=== PATIENT | female | born 1990 | race African-American/Black ===

== ENCOUNTER 2020-05-24 12:47 | Emergency (ER) | payer OTHER ==
[~2020-05-24] VITALS: Ht 172.7 cm; Wt 86.0 kg
[2020-05-24] MEDS ORDERED: LEVETIRACETAM 500MG PREMIX 100 ML IV ONE (13:30)
[2020-05-24] MEDS ORDERED: IBUPROFEN 800MG TABLET PO ONE (16:15)
[2020-05-24 16:19] VITALS: BP 124/72
== END 2020-05-24 16:52 | disposition home or self-care (01) ==
LOC: ER 12:47
DX: R56.9 Unspecified convulsions (principal)
CPT/HCPCS: 81025; 96365; 96366; 99284; J1953

== ENCOUNTER 2020-06-28 10:26 | Emergency (ER) | payer OTHER ==
[~2020-06-28] VITALS: Ht 177.8 cm; Wt 80.0 kg
[2020-06-28] MEDS ORDERED: SODIUM CHLORIDE 0.9% 1,000 ML IV ONE (10:30)
[2020-06-28] MEDS ORDERED: LORAZEPAM 2MG/ML CPJ IV NR (10:45)
[2020-06-28] MEDS ORDERED: LEVETIRACETAM 500MG PREMIX 100 ML IV NR ×2 (10:45→12:15)
[2020-06-28 11:02] LABS: BASOPHILS % 0.8 % (0.0-2.0); EOSINOPHILS % 3.9 % (0.0-5.0); HEMATOCRIT. 39.4 % (36.0-48.0); LYMPHOCYTES % 31.5 % (20.0-50.0); MEAN CORPUSCULAR HEMOGLOBIN 32.5 pg (28.0-32.0); MEAN CORPUSCULAR VOLUME 98.4 fL (81.0-99.0); MEAN PLATELET VOLUME 10.2 fl (7.4-10.4); MONOCYTES % 7.3 % (2.0-8.0); NEUTROPHILS % 56.5 % (40.0-76.0); PLATELET 172 x1000/uL (130-400); RED CELL DISTRIBUTION WIDTH 12.4 % (11.6-14.6)
[2020-06-28 11:09] LABS: CHLORIDE 108 mEq/L (98-107)
[2020-06-28 11:15] LABS: ETHANOL BLOOD < 10 mg/dL
[2020-06-28 11:24] LABS: VALPROIC ACID < 3.0 ug/mL (50-100)
[2020-06-28 11:31] LABS: CARBAMAZEPINE < 0.5 ug/mL (4-12); PHENOBARBITAL < 2.1 ug/mL (15.0-40.0)
[2020-06-28 13:24] LABS: CLARITY URINE CLOUDY (CLEAR); COLOR URINE YELLOW (YELLOW); KETONES URINE NEGATIVE (NEGATIVE); LEUKOCYTE ESTERASE URINE NEGATIVE (NEGATIVE); NITRITE URINE NEGATIVE (NEGATIVE); OCCULT BLOOD URINE NEGATIVE (NEGATIVE); PROTEIN URINE NEGATIVE (NEGATIVE); SPECIFIC GRAVITY URINE 1.026 (1.005-1.030); UROBILINOGEN URINE 0.2 E.U./dL (0.2-1.0)
[2020-06-28 13:40] LABS: *AMPHETAMINES SCREEN URINE NEGATIVE (NEGATIVE); *BARBITURATES SCREEN URINE NEGATIVE (NEGATIVE); *BENZODIAZEPINES SCREEN URINE NEGATIVE (NEGATIVE); *COCAINE SCREEN URINE NEGATIVE (NEGATIVE)
[2020-06-28 13:41] LABS: METHADONE URINE SCREEN NEGATIVE (NEGATIVE); OPIATES URINE SCREEN NEGATIVE (NEGATIVE); PHENCYCLIDINE URINE SCREEN NEGATIVE (NEGATIVE)
[2020-06-28 13:48] LABS: CANNABINOID URINE SCREEN PRESUMTIVE POSITIVE (NEGATIVE)
[2020-06-28 14:02] VITALS: BP 127/73
== END 2020-06-28 14:05 | disposition home or self-care (01) ==
LOC: ER 10:26
DX: R56.9 Unspecified convulsions (principal); F12.10 Cannabis abuse, uncomplicated
CPT/HCPCS: 36415; 70450; 71045; 80053; 80156; 80165; 80184; 80185; 80305; 80320; 81003; 81025; 85025; 93005; 96365; 96375; 99285; J1953; J2060; J7030; G0480

== ENCOUNTER 2021-09-29 09:59 | Inpatient (IN) | payer OTHER ==
[~2021-09-29] VITALS: Ht 162.6 cm; Wt 91.6 kg
[2021-09-29] MEDS ORDERED: SODIUM CHLORIDE 0.9% 1,000 ML IV ONE (11:00)
[2021-09-29 11:05] LABS: BASOPHILS % 0.6 % (0.0-2.0); EOSINOPHILS % 3.5 % (0.0-5.0); HEMOGLOBIN. 12.7 g/dL (12.0-16.0); LYMPHOCYTES % 31.9 % (20.0-50.0); MEAN CORPUSCULAR HEMOGLOBIN 31.6 pg (28.0-32.0); MEAN CORPUSCULAR VOLUME 94.9 fL (81.0-99.0); PLATELET 185 x1000/uL (130-400)
[2021-09-29 11:09] LABS: CHLORIDE 110 mEq/L (98-107)
[2021-09-29 11:17] LABS: ETHANOL BLOOD < 10 mg/dL
[2021-09-29 11:18] LABS: B-HCG QUANTITATIVE < 1 mIU/mL (<3)
[2021-09-29 14:32] LABS: CLARITY URINE CLOUDY (CLEAR); COLOR URINE YELLOW (YELLOW); KETONES URINE TRACE (NEGATIVE); LEUKOCYTE ESTERASE URINE NEGATIVE (NEGATIVE); NITRITE URINE NEGATIVE (NEGATIVE); OCCULT BLOOD URINE NEGATIVE (NEGATIVE); PH URINE 7.5 (4.5-8.0); PROTEIN URINE NEGATIVE (NEGATIVE); SPECIFIC GRAVITY URINE 1.024 (1.005-1.030)
[2021-09-29 14:59] LABS: *AMPHETAMINES SCREEN URINE NEGATIVE (NEGATIVE); *BARBITURATES SCREEN URINE NEGATIVE (NEGATIVE); *BENZODIAZEPINES SCREEN URINE NEGATIVE (NEGATIVE); *COCAINE SCREEN URINE NEGATIVE (NEGATIVE); METHADONE URINE SCREEN NEGATIVE (NEGATIVE); OPIATES URINE SCREEN NEGATIVE (NEGATIVE); PHENCYCLIDINE URINE SCREEN NEGATIVE (NEGATIVE)
[2021-09-29 15:08] LABS: CANNABINOID URINE SCREEN PRESUMTIVE POSITIVE (NEGATIVE)
[2021-09-29 18:22] VITALS: BP 100/58
[2021-09-29] MEDS ORDERED: CARB200T PO (18:30)
[2021-09-29] MEDS ORDERED: ZONI50CA PO (18:30)
[2021-09-29] MEDS ORDERED: LEVE750T4 PO (18:30)
[2021-09-29] MEDS ORDERED: LORAZEPAM 2MG/ML CPJ IV PRN (19:30)
[2021-09-29 20:00] VITALS: BP 99/52
[2021-09-29 20:43] VITALS: BP 99/52
[2021-09-29] MEDS ORDERED: ZONISAMIDE 100MG CAPSULE PO SCH ×2 (21:00)
[2021-09-29] MEDS: CARBAMAZEPINE 200MG TABLET PO SCH (21:18)
[2021-09-29] MEDS: LEVETIRACETAM 500MG TABLET PO SCH (21:18)
[2021-09-30] VITALS: BP 97/51
[2021-09-30 04:00] VITALS: BP 90/51
[2021-09-30] MEDS: CARBAMAZEPINE 200MG TABLET PO SCH ×2 (05:32→14:44)
[2021-09-30] MEDS: LEVETIRACETAM 500MG TABLET PO SCH (09:32)
[2021-09-30 17:54] VITALS: BP 100/50
[2021-09-30] MEDS ORDERED: CARBAMAZEPINE 200MG TABLET PO SCH (22:00)
[2021-10-01] MEDS ORDERED: CARB200T MT (09:41)
[2021-10-01] MEDS ORDERED: LEVE1000 MT (09:41)
== END 2021-09-30 18:20 | disposition home or self-care (01) | DRG 53 ==
LOC: ER 10:06 → 7WST 14:35 → ENRESERV 17:14
PROVIDERS: ADMIT Internal Medicine; ATTEND Internal Medicine
DX: G40.909 Epilepsy, unspecified, not intractable, without status epilepticus (principal); E87.8 Other disorders of electrolyte and fluid balance, not elsewhere classified; F12.90 Cannabis use, unspecified, uncomplicated; Z82.0 Family history of epilepsy and other diseases of the nervous system; Z79.899 Other long term (current) drug therapy; Z88.8 Allergy status to other drugs, medicaments and biological substances
CPT/HCPCS: 36415; 71045; 80053; 80305; 80320; 81003; 83605; 84702; 85025; 99285; J7030; G0480

== ENCOUNTER 2022-04-09 15:30 | Emergency (ER) | payer MEDICAID, OTHER ==
[~2022-04-09] VITALS: Ht 162.6 cm; Wt 82.0 kg
[~2022-04-09 15:30] MED LIST: CARB200T MT; CARB200T PO; LEVE1000 MT; LEVE750T4 PO; ZONI50CA PO
[2022-04-09] MEDS ORDERED: IBUPROFEN 400MG TABLET PO NR (16:00)
[2022-04-09] MEDS ORDERED: IBUPROFEN 400MG TABLET PO ONE (16:00)
[2022-04-09] MEDS ORDERED: SODIUM CHLORIDE 0.9% 1,000 ML IV ONE (16:00)
[2022-04-09] MEDS ORDERED: LEVETIRACETAM 500MG PREMIX 100 ML IV NR (16:00)
[2022-04-09] MEDS ORDERED: LEVETIRACETAM 500MG PREMIX 100 ML IV ONE (16:00)
[2022-04-09 16:36] LABS: BASOPHILS % 0.5 % (0.0-2.0); EOSINOPHILS % 1.4 % (0.0-5.0); HEMATOCRIT. 36.7 % (36.0-48.0); HEMOGLOBIN. 12.1 g/dL (12.0-16.0); LYMPHOCYTES % 20.3 % (20.0-50.0); MEAN CORPUSCULAR HEMOGLOBIN 32.3 pg (28.0-32.0); MEAN CORPUSCULAR VOLUME 97.7 fL (81.0-99.0); MEAN PLATELET VOLUME 10.2 fl (7.4-10.4); MONOCYTES % 5.4 % (2.0-8.0); NEUTROPHILS % 72.4 % (40.0-76.0); PLATELET 192 x1000/uL (130-400); RED BLOOD CELL COUNT 3.75 mill/uL (4.2-5.4); RED CELL DISTRIBUTION WIDTH 11.9 % (11.6-14.6)
[2022-04-09 16:48] LABS: CHLORIDE 113 mEq/L (98-107)
[2022-04-09 16:53] LABS: HCG SCREEN NEGATIVE
[2022-04-09 19:27] VITALS: BP 111/67
== END 2022-04-09 20:33 | disposition home or self-care (01) ==
LOC: ER 15:30
DX: G40.909 Epilepsy, unspecified, not intractable, without status epilepticus (principal); R51.9 Headache, unspecified; R73.9 Hyperglycemia, unspecified
CPT/HCPCS: 36415; 80053; 80156; 84703; 85025; 93005; 96361; 96365; 99284; J1953; J7030

== ENCOUNTER 2022-05-26 10:36 | Emergency (ER) | payer MEDICAID, OTHER ==
[~2022-05-26] VITALS: Ht 165.1 cm; Wt 89.0 kg
[2022-05-26 10:40] VITALS: BP 132/75
[2022-05-26] MEDS ORDERED: LORAZEPAM 2MG/ML CPJ IV ONE (11:30)
[2022-05-26 12:04] LABS: BASOPHILS % 0.6 % (0.0-2.0); EOSINOPHILS % 0.3 % (0.0-5.0); HEMATOCRIT. 37.5 % (36.0-48.0); HEMOGLOBIN. 12.5 g/dL (12.0-16.0); MEAN CORPUSCULAR HEMOGLOBIN 32.4 pg (28.0-32.0); MEAN CORPUSCULAR VOLUME 97.1 fL (81.0-99.0); MEAN PLATELET VOLUME 10.1 fl (7.4-10.4); MONOCYTES % 8.1 % (2.0-8.0); PLATELET 187 x1000/uL (130-400); RED BLOOD CELL COUNT 3.86 mill/uL (4.2-5.4)
[2022-05-26 12:16] LABS: CHLORIDE 112 mEq/L (98-107); HCG SCREEN NEGATIVE
== END 2022-05-26 15:16 | disposition home or self-care (01) ==
LOC: ER 10:36
DX: G40.909 Epilepsy, unspecified, not intractable, without status epilepticus (principal); Z79.899 Other long term (current) drug therapy
CPT/HCPCS: 36415; 80053; 82962; 84703; 85025; 93005; 96374; 99284; J2060

== ENCOUNTER 2022-11-08 15:45 | Emergency (ER) | payer OTHER ==
[~2022-11-08] VITALS: Ht 167.6 cm; Wt 141.0 kg
[2022-11-08 16:00] VITALS: BP 112/67; PULSE 80; RESP 16; TEMP 98.7; O2SAT 100
[2022-11-08] MEDS ORDERED: LORAZEPAM 2MG/ML CPJ IV ONE (16:30)
== END 2022-11-08 17:10 | disposition left against medical advice (07) ==
LOC: ER 15:45
DX: R56.9 Unspecified convulsions (principal); Z53.29 Procedure and treatment not carried out because of patient's decision for other reasons; Z88.1 Allergy status to other antibiotic agents
CPT/HCPCS: 99283; J2060; Z7610 ×3